=== PATIENT | female | born 1950 | race Two or more races ===

== ENCOUNTER → 2017-08-10 | Outpatient (CLI) | payer OTHER | LOC: SBRMNEURO 20:00 | PROVIDERS: ATTEND Physician Assistant Medical | DX: G47.33 Obstructive sleep apnea (adult) (pediatric) (principal); G47.36 Sleep related hypoventilation in conditions classified elsewhere ==

== ENCOUNTER 2018-08-11 06:55 | Day surgery (SDC) | payer OTHER ==
[2018-08-11] MEDS ORDERED: DIAZEPAM 5 MG TAB PO ONE (07:09)
[2018-08-11] MEDS ORDERED: diphenhydrAMINE 25 MG CAP PO ONE ×2 (07:09→08:57)
[2018-08-11] MEDS ORDERED: ASPIRIN EC 325 MG TAB PO ONE (07:09)
[2018-08-11] MEDS ORDERED: FAMOTIDINE 20 MG TAB PO ONE (07:09)
[2018-08-11] MEDS ORDERED: NS 1,000 ML IV ONE (07:09)
[2018-08-11] MEDS ORDERED: MIDAZOLAM 2 MG/2 ML VIAL ONE (08:56)
[2018-08-11] MEDS ORDERED: LIDOCAINE 1% 300 MG/30 ML SDV ONE (08:56)
[2018-08-11] MEDS ORDERED: fentaNYL 100 MCG/2 ML INJ ONE (08:56)
[2018-08-11] MEDS ORDERED: IOHEXOL 350mgI/ML (OMNIPAQUE) 150 ML BTL IV ONE ×2 (08:57)
--- NOTE | 2018-08-11 08:58 | PDPROPOC ---
Sedation Plan of Care Sedation Plan of Care: vital signs stable, mental status noted, patient educated of risks, benefits, alternatives, patient can tolerate sedation ASA Classification: ASA 2 Planned drugs: fentanyl, midazolam Mallampati Score: Class 2 Mallampati Reference Image: Patient passed 3-3-2 rule?: Yes
--- NOTE | 2018-08-11 08:58 | PDHPUP ---
History & Physical Update H&P update statement: This history and physical update is based on an assessment of the patient which was completed after admission or registration (within 24 hours), but prior to the surgery/procedure. H&P update: H&P reviewed & patient examined, no change in patient's condition since H&P completed
[2018-08-11 09:10] LABS: PLATELET COUNT 261 10^3/uL (150-400)
[2018-08-11 09:19] LABS: INR 0.98 (0.83-1.16); PROTIME(PATIENT) 13.2 SEC (12.0-15.0)
[2018-08-11] MEDS ORDERED: ATROPINE SULFATE 1 MG/10 ML SYR IVP PRN (11:40)
[2018-08-11] MEDS ORDERED: HYDROCODONE/APAP 5/325 TAB PO PRN (11:40)
[2018-08-11] MEDS ORDERED: NITROGLYCERIN 0.4 MG BTL SL PRN (11:40)
[2018-08-11] MEDS ORDERED: OXYCODONE/APAP 5/325 TAB PO PRN (11:40)
[2018-08-11] MEDS ORDERED: ONDANSETRON 4 MG/2 ML VIAL IVP PRN (11:40)
--- NOTE | 2018-08-11 11:47 | PDDXCAT ---
Diagnostic Cath Note - . Date: 08/11/18 [employer]: Bertha Indication: other (Chest pains with ETT and ST/T wave changes were noted) - Procedure Access: right groin Procedure: left heart catheterization, coronary angiography, left ventriculogram - Materials Left Heart Cath size: 6F Left Heart Cath materials: standard multipack (JL4, JR4, pigtail) - Findings-Left Heart Catheterization LM: Lengthy vessel with trifurcation into the LAD, ramus, and LCX. No appreciable luminal irregularities were noted. LAD: Medium diameter vessel with 30% lesion noted ostially with diffuse, non critical CAD. Principal diagonal with branch vessel noted. The ostium of this branch vessel (from the diag) with 70% stenosis noted. LCX: Medium diameter vessel with a large principal OM. Narrowing of the proximal/mid LCX (smooth plaque) with 10-20% stenosis noted. The OM takes the majority of the diamter from the LCX vessel. Distal toruosity was noted, but no appreciable luminal irregularities were noted. RCA: Medium diamter vessel with supply to the PDA/MARILUZ vessel. Minor luminal irregularities were noted. Ramus: Small, diminuative ramsus was noted. EDP: 23 mm Hg LVEF: 70 Wall motion: normal wall motion Complications: none Estimated blood loss: <50ml Closure method: Angioseal Assessment: Patient is a 68 y/o female with non critical CAD noted to LAD and LCX. Dominant RCA vessel with diffuse, non critical CAD noted. Normal LVEF was noted. Plan: Query GI or pulmonary etiology for the symptoms that have bee noted. Would ensure that patient has follow up with cardiology in 1-2 weeks. Maintain medical therapy as at present. Patient's family was in agreement with these plans. Intervention: none
== END 2018-08-11 13:44 | disposition home or self-care (01) ==
LOC: FCATH 06:55
PROVIDERS: ATTEND Internal Medicine Cardiovascular Disease
DX: R07.89 Other chest pain (principal); R06.02 Shortness of breath; R94.39 Abnormal result of other cardiovascular function study; I25.10 Atherosclerotic heart disease of native coronary artery without angina pectoris; I10 Essential (primary) hypertension; E78.5 Hyperlipidemia, unspecified; G47.33 Obstructive sleep apnea (adult) (pediatric); G20 Parkinson's disease; E21.3 Hyperparathyroidism, unspecified; M81.0 Age-related osteoporosis without current pathological fracture; G25.81 Restless legs syndrome; Z80.3 Family history of malignant neoplasm of breast
CPT/HCPCS: C1760; J1644; J2250; J3010; Q9967

== ENCOUNTER → 2018-09-11 | Outpatient (CLI) | payer OTHER | LOC: FIMAGING 11:43 | PROVIDERS: ATTEND Internal Medicine Critical Care Medicine | DX: R91.8 Other nonspecific abnormal finding of lung field (principal); R09.02 Hypoxemia; R06.02 Shortness of breath; G47.33 Obstructive sleep apnea (adult) (pediatric); M40.204 Unspecified kyphosis, thoracic region ==

== ENCOUNTER → 2018-12-05 | Outpatient (CLI) | payer OTHER | LOC: CIMAGING 08:21 ==